=== PATIENT | female | born 1940 | race Hispanic/Latino ===

== ENCOUNTER 2018-11-26 11:35 | Emergency (ER) | payer OTHER ==
--- NOTE | 2018-11-26 14:48 | RAD REPORT ---
EXAM DESCRIPTION: Kristi Single View11/26/2018 2:21 pm CLINICAL HISTORY: Chest pain COMPARISON: January 2018 FINDINGS: Lungs are hyperaerated. The lungs appear clear of acute infiltrate. The heart is normal size IMPRESSION: No acute abnormalities displayed
[2018-11-26 15:02] LABS: Absolute Lymphocytes (CBC) 1.6 K/uL (0.7-4.9); Absolute Monocytes 0.4 K/uL (0.1-1.3); Absolute Neutrophil 4.7 K/uL (1.8-8.0); Eosinophils % 2.5 % (0-4.4); Hematocrit 36.2 % (36.0-45.0); Lymphocytes % 22.6 % (15.3-44.8); MPV 9.2 fL (7.6-11.3); Monocytes % 5.5 % (3.3-12.3)
[2018-11-26 15:03] LABS: Protime INR 0.98
[2018-11-26 15:18] LABS: ALT/SGPT 16 U/L (12-78); AST/SGOT 14 U/L (15-37); Albumin 3.5 g/dL (3.4-5.0); Alkaline Phosphatase 86 U/L (45-117); BUN Blood Urea Nitrogen 16 mg/dL (7-18); Bicarbonate 29 mmol/L (21-32); Bilirubin Direct 0.2 mg/dL (0-0.2); Bilirubin Total 0.5 mg/dL (0.2-1.0); Glucose Level 92 mg/dL (74-106); Magnesium 2.1 mg/dL (1.8-2.4); NT PRO-BNP 713 pg/mL (<450); Potassium 3.7 mmol/L (3.5-5.1); Protein, Total 6.6 g/dL (6.4-8.2); Sodium Level 143 mmol/L (136-145); Troponin (Emerg Dept Use Only) < 0.02 ng/mL (0.0-0.045)
[2018-11-26] MEDS ORDERED: FENTANYL CITR 100 MCG/2 ML ONE (16:01)
--- NOTE | 2018-11-26 16:03 | RAD REPORT ---
EXAM DESCRIPTION: CT - Angio Aorta For Dissection - 11/26/2018 3:43 pm CLINICAL HISTORY: . Chest and abdominal pain COMPARISON: None TECHNIQUE: Computed tomography angiography of the chest, abdomen pelvis were obtained. 100 cc Isovue 370 was administered intravenously. Coronal and sagittal reconstruction were performed. MIP 3D reconstruction was performed All CT scans are performed using dose optimization technique as appropriate and may include automated exposure control or mA/KV adjustment according to patient size. FINDINGS: An aortic dissection is not seen. An aortic aneurysm is not displayed. The celiac, SMA and NILA are patent . A lung consolidation is not present. A pericardial effusion is not seen. A pleural effusion is not n oted. The liver,spleen, pancreas adrenals kidneys demonstrate no significant abnormality. There no evidence diverticulitis. A serpiginous structure is present within the uterus measuring approximately 6 centimeters Spondylosis involves the spinal canal resulting in spondylosis. Small amount of ascites is present wi thin the pelvis IMPRESSION: Negative for an aortic dissection. Serpiginous structure is present within the uterus of uncertain etiology. It may represent an unusual appearing IUD or other foreign body and should be correlated clinically
--- NOTE | 2018-11-26 16:54 | EDPHYS ---
Physician Documentation [facility] Name: Lili Castellanos Age: 78 yrs Sex: Female : 1940 Arrival Date: 11/26/2018 Time: 11:38 Bed 9 Private MD: None, None ED Physician Luis Patton Historical: - Allergies: 11/26 11:42 No Known Allergies; sg - PMHx: 11:42 Hypertension; sg - Immunization history:: Adult Immunizations not up to date. - Social history:: Smoking status: Patient/guardian denies using tobacco. - Ebola Screening: : Patient negative for fever greater than or equal to 101.5 degrees Fahrenheit, and additional compatible Ebola Virus Disease symptoms Patient denies exposure to infectious person Patient denies travel to an Ebola-affected area in the 21 days before illness onset No symptoms or risks identified at this time. Vital Signs: 11:41 BP 152 / 77; Pulse 74; Resp 17; Temp 97.7; Pulse Ox 95% on R/A; Pain 7/10; sg 15:55 BP 160 / 70; Pulse 73; Resp 18; Pulse Ox 100% on R/A; Pain 5/10; mg2 17:00 BP 155 / 70; Pulse 70; Resp 18; Pulse Ox 100% on R/A; Pain 0/10; mg2 MDM: 13:59 Patient medically screened. 11/26 14:08 Order name: Basic Metabolic Panel; Complete Time: 16:43 11/26 14:08 Order name: CBC with Diff; Complete Time: 15:15 11/26 14:08 Order name: LFT's; Complete Time: 16:43 11/26 14:08 Order name: Magnesium; Complete Time: 16:43 11/26 14:08 Order name: NT PRO-BNP; Complete Time: 16:43 11/26 14:08 Order name: PT-INR; Complete Time: 15:15 11/26 14:08 Order name: Troponin (emerg Dept Use Only); Complete Time: 16:43 11/26 14:08 Order name: XRAY Chest (1 view) 11/26 14:08 Order name: EKG; Complete Time: 14:09 11/26 14:08 Order name: D-Dimer; Complete Time: 15:15 11/26 14:53 Order name: RAD; Complete Time: 15:15 EDMN 11/26 15:09 Order name: CT Aorta for Dissection 11/26 16:06 Order name: CT; Complete Time: 16:43 EDMN 11/26 14:08 Order name: Cardiac monitoring; Complete Time: 15:22 11/26 14:08 Order name: EKG - Nurse/Tech; Complete Time: 15:22 11/26 14:08 Order name: IV Saline Lock; Complete Time: 14:49 11/26 14:08 Order name: Labs collected and sent; Complete Time: 14:50 11/26 14:08 Order name: O2 Per Protocol; Complete Time: 14:50 11/26 14:08 Order name: O2 Sat Monitoring; Complete Time: 14:50 gs Administered Medications: 15:54 Drug: fentaNYL (PF) 25 mcg Route: IVP; Site: left antecubital; mg2 16:57 Follow up: Response: No adverse reaction; Marked relief of symptoms mg2 Disposition: 11/26/18 16:53 Discharged to Home. Impression: Low back pain - neck pain. - Condition is Stable. - Discharge Instructions: Musculoskeletal Pain. - Prescriptions for Naprosyn 500 mg Oral Tablet - take 1 tablet by ORAL route 2 times per day As needed take with food; 20 tablet. Tylenol- Codeine #4 300-60 mg Oral Tablet - take 1 tablet by ORAL route every 8 hours As needed; 10 tablet. - Medication Reconciliation Form, Thank You Letter, Antibiotic Education, Prescription Opioid Use form. - Follow up: Private Physician; When: 2 - 3 days; Reason: Re-evaluation by your physician. Addendum: 12/06/2018 10:17 Addendum: cc-back pain hpi-onset morning of date of service, located base of neck to g s mid back radiates to front of chest mild sob. no relieving or worsening factors. has not had like this before. NN pmh- reviewed and agree. sochx lives at home ROS-all reviewed and negative. PE- gen awake alert no distress Head- normal, no trauma ent-pharynx ears normal cv rrr no murmur rsp-lungs clear no resp distress gi-ab soft and non tender skin - no rash ms-no deformity good perfusion neuro-cn intact no motor or sensory deficits MDM-ekg sr no significant st changes normal rate. ddx tad,cad,ms pain concern cv etiology workup negative pain relieved discussed with patient understands results. will follow up with pcp. Signatures: Dispatcher [employer] Yonny Galvin RN RN sg Luis Patton MD MD gs Tino Hazel RN RN mg2 Corrections: (The following items were deleted from the chart) 11/26 17:12 16:53 11/26/2018 16:53 Discharged to Home. Impression: Low back pain - neck pain. mg2 Condition is Stable. Forms are Medication Reconciliation Form, Thank You Letter, Antibiotic Education, Prescription Opioid Use. Follow up: Private Physician; When: 2 - 3 days; Reason: Re-evaluation by your physician. gs
--- NOTE | 2018-11-26 16:54 | ER ---
Nurse's Notes [facility] Name: Lili Castellanos Age: 78 yrs Sex: Female : 1940 Arrival Date: 11/26/2018 Time: 11:38 Bed 9 Private MD: None, None Diagnosis: Low back pain-neck pain Presentation: 11/26 11:39 Presenting complaint: Patient states: albanian speaking only, " reports back pain, sg entire back, denies trauma or injury, describes pain as sharp and stabbing that is intermittent". Transition of care: patient was not received from another setting of care. Onset of symptoms was November 26, 2018. Risk Assessment: Do you want to hurt yourself or someone else? Patient reports no desire to harm self or others. Initial Sepsis Screen: Does the patient meet any 2 criteria? No. Patient's initial sepsis screen is negative. Does the patient have a suspected source of infection? No. Patient's initial sepsis screen is negative. Care prior to arrival: None. 11:39 Acuity: KYLE 4 sg 11:39 Method Of Arrival: Ambulatory sg 14:00 Acuity: KYLE 3 iw Historical: - Allergies: 11:42 No Known Allergies; sg - PMHx: 11:42 Hypertension; sg - Immunization history:: Adult Immunizations not up to date. - Social history:: Smoking status: Patient/guardian denies using tobacco. - Ebola Screening: : Patient negative for fever greater than or equal to 101.5 degrees Fahrenheit, and additional compatible Ebola Virus Disease symptoms Patient denies exposure to infectious person Patient denies travel to an Ebola-affected area in the 21 days before illness onset No symptoms or risks identified at this time. Screenin:23 Abuse screen: Denies threats or abuse. Denies injuries from another. Nutritional iw screening: No deficits noted. Tuberculosis screening: No symptoms or risk factors identified. Fall Risk IV access (20 points). Assessment: 12:50 General: Appears uncomfortable, Behavior is calm. Pain: Complains of pain in back. iw Neuro: Level of Consciousness is awake, alert, obeys commands, Oriented to person, place, time, Moves all extremities. 13:50 General: Appears uncomfortable, Behavior is calm, cooperative. Pain: Complains of pain iw in left trapezius, right trapezius, thoracic area and lumbar area Pain currently is 8 out of 10 on a pain scale. Neuro: Level of Consciousness is awake, alert, obeys commands, Oriented to person, place, time. Cardiovascular: Reports shortness of breath, Heart tones S1 S2 Capillary refill < 3 seconds in bilateral fingers Patient's skin is warm and dry. Respiratory: Respiratory effort is even, unlabored, Respiratory pattern is regular, symmetrical. GI: No signs and/or symptoms were reported involving the gastrointestinal system. Derm: Skin is intact, is healthy with good turgor. Musculoskeletal: Reports pain in back. 15:48 Reassessment: patient is back from ct scan. mg2 17:09 Reassessment: Patient appears in no apparent distress at this time. Patient and/or mg2 family updated on plan of care and expected duration. Pain level reassessed. Patient is alert, oriented x 3, equal unlabored respirations, skin warm/dry/pink. patient was discharged with the help of license and permit specialist online. patient relieved from pain. Vital Signs: 11:41 BP 152 / 77; Pulse 74; Resp 17; Temp 97.7; Pulse Ox 95% on R/A; Pain 7/10; sg 15:55 BP 160 / 70; Pulse 73; Resp 18; Pulse Ox 100% on R/A; Pain 5/10; mg2 17:00 BP 155 / 70; Pulse 70; Resp 18; Pulse Ox 100% on R/A; Pain 0/10; mg2 ED Course: 11:38 Patient arrived in ED. mr 11:38 None, None is Private Physician. mr 11:39 Arm band placed on. sg 11:41 Triage completed. sg 12:15 Shaina Perez, RN is Primary Nurse. iw 13:44 Luis Patton MD is Attending Physician. gs 14:50 Initial lab(s) drawn, by pa, sent to lab. Inserted saline lock: 20 gauge Blood iw collected. 15:[address] sj 15:39 EKG done, by supply technician. reviewed by Luis Patton MD. dt2 15:41 CT completed. Patient tolerated procedure well. Patient moved back from CT. nj 15:48 Patient has correct armband on for positive identification. Bed in low position. Call mg2 light in reach. client services manager on. Pulse ox on. NIBP on. Door closed. Warm blanket given. 15:48 No provider procedures requiring assistance completed. mg2 17:09 IV discontinued, intact, bleeding controlled, No redness/swelling at site. Pressure mg2 dressing applied. Administered Medications: 15:54 Drug: fentaNYL (PF) 25 mcg Route: IVP; Site: left antecubital; mg2 16:57 Follow up: Response: No adverse reaction; Marked relief of symptoms mg2 Outcome: 16:53 Discharge ordered by . 17:09 Discharged to home ambulatory. mg2 17:09 Condition: stable 17:09 Discharge instructions given to patient, using license and permit specialist Instructed on discharge instructions, follow up and referral plans. medication usage, Demonstrated understanding of instructions, follow-up care, medications, Prescriptions given X 2. 17:12 Patient left the ED. mg2 Signatures: Yonny Dickey RN Maira Cordero, Shaina Odonnell RN RN iw Jordan, Nathan nj Starr, Gregory, MD MD gs Gardose, Michele, RN RN mg2 Baldo, Jovita ann2
--- NOTE | 2018-11-26 18:19 | EKG ---
Test Date: 2018-11-26 Test Time: 15:20:17 Child Health Associate: KAVEH MEASUREMENT RESULTS: Intervals: Rate: 63 VT: 132 QRSD: 82 QT: 406 QTc: 415 [place]: P: 42 VT: 132 QRS: 14 T: 59 INTERPRETIVE STATEMENTS: Normal sinus rhythm Normal ECG No previous ECG available for comparison Electronically Signed On 11-26-18 18:19:12 ROTOFORMER BACKTENDER by Dilip Molina
== END 2018-11-26 17:12 | disposition home or self-care (01) ==
LOC: ER 11:35
DX: M54.2 Cervicalgia (principal); M54.5 Low back pain
CPT/HCPCS: 36415; 71045; 71275; 74175; 80048; 80076; 83735; 83880; 84484; 85025; 85379; 85610; 93005; 96374; 99285; J3010; Q9967